=== PATIENT | male | born 1935 | race Caucasian/White ===

== ENCOUNTER 2018-02-13 18:22 | Emergency (ER) | payer OTHER, MEDICARE ==
--- NOTE | 2018-02-13 18:42 | PDOC ---
Rapid Medical Evaluation Time Seen by Provider: 02/13/18 18:38 Medical Evaluation: Allergies Allergy/AdvReac Type Severity Reaction Status Date / Time No Known Allergies Allergy Verified 11/06/11 17:42 02/13/18 18:38 82 year old male with HTN, HLD bitten by a raccoon 5:30p. Has laceration to right calf. -To FT for further evaluation
[2018-02-13 18:44] VITALS: BP 140/72; PULSE 89; TEMP 98.9; BMI 22.8
[2018-02-13] MEDS ORDERED: TETANUS AND DIPHTHERIA TOXOID 0.5 ML DISP.SYRIN IM ONE (19:14)
[2018-02-13] MEDS ORDERED: RABIES IMMUNE GLOBULIN 300 UNITS/2 ML VIAL IM ONE ×2 (19:17→19:45)
[2018-02-13] MEDS ORDERED: RABIES VACCINE (PCEC)/PF 2.5 UNIT/VIAL IM ONE (19:17)
--- NOTE | 2018-02-13 19:17 | PDOC ---
History of Present Illness - General Chief Complaint: Bite Stated Complaint: BITTEN BY RACCOON Time Seen by Provider: 02/13/18 18:38 - History of Present Illness Initial Comments: 82-year-old male presents for evaluation after being bit by a raccoon in his yard doing yard work. Past medical history significant for hypertension and dyslipidemia no ALLERGIES to medications. The bite is about the posterior lateral aspect of the right lower leg. 02/13/18 19:16 Past History - Past Medical History Allergies/Adverse Reactions: Allergies Allergy/AdvReac Type Severity Reaction Status Date / Time No Known Allergies Allergy Verified 02/13/18 18:42 Home Medications: Ambulatory Orders Lisinopril 10 mg PO ASDIR 02/13/18 Lovastatin 20 mg PO ASDIR 02/13/18 Triamterene/Hydrochlorothiazid [Triamterene-Hctz 37.5-25 mg Cp] 1 each PO ASDIR 02/13/18 COPD: No DVT: No HTN: Yes Hypercholesterolemia: Yes - Surgical History Cholecystectomy: Yes - Suicide/Smoking/Psychosocial Hx Smoking Status: No Smoking History: Never smoked Number of Cigarettes Smoked Daily: 0 Review of Systems - Review of Systems All Other Systems: Reviewed and Negative *Physical Exam - Vital Signs Last Vital Signs Temp Pulse Resp BP Pulse Ox 98.9 F 89 19 140/72 97 02/13/18 18:42 02/13/18 18:42 02/13/18 18:42 02/13/18 18:42 02/13/18 18:42 - Physical Exam Comments: There is a small superficial bite don on the posterior lateral aspect of the right lower leg with normal surrounding skin color and temperature of the edges are approximated no gross sensorimotor deficits. 02/13/18 19:17 Moderate Sedation - Procedure Monitoring Vital Signs: Vital Signs Temp Pulse Resp BP Pulse Ox 98.9 F 89 19 140/72 97 02/13/18 18:42 02/13/18 18:42 02/13/18 18:42 02/13/18 18:42 02/13/18 18:42 Medical Decision Making - Medical Decision Making Immunoglobulin was given around the wound and tolerated it well. This was done aseptically. 02/13/18 20:13 *DC/Admit/Observation/Transfer Diagnosis at time of Disposition: Rabies exposure - Discharge Dispostion Disposition: HOME Condition at time of disposition: Stable Decision to Admit order: No - Referrals Referrals: Uvaldo Welsh MD [Primary Care Provider] - - Patient Instructions Printed Discharge Instructions: Rabies Vaccine, DI for Animal Bites, DI for Rabies Vaccine Additional Instructions: Must return to the emergency department and receive a complete course of rabies vaccinations. Today is day 0. You return on day 3, 7, 14, and 28. The days are as follows: 02/16/18 02/20/18 02/27/18 03/13/18 - Post Discharge Activity
[2018-02-13] MEDS ORDERED: RABIES IMMUNE GLOBULIN 300 UNITS/2 ML VIAL ONE (19:44)
== END 2018-02-13 20:34 | disposition home or self-care (01) ==
LOC: JERFT 18:22
PROC: 3E0234Z Introduction of Serum, Toxoid and Vaccine into Muscle, Percutaneous Approach (ICD-10-PCS; principal; 2018-02-13)
PROC: 3E0234Z Introduction of Serum, Toxoid and Vaccine into Muscle, Percutaneous Approach (ICD-10-PCS; 2018-02-13)
PROC: 3E0234Z Introduction of Serum, Toxoid and Vaccine into Muscle, Percutaneous Approach (ICD-10-PCS; 2018-02-13)
DX: S80.871A Other superficial bite, right lower leg, initial encounter (principal); W55.51XA Bitten by raccoon, initial encounter; Y93.H2 Activity, gardening and landscaping; Y92.017 Garden or yard in single-family (private) house as the place of occurrence of the external cause; Y99.8 Other external cause status
CPT/HCPCS: 90375; 90471; 90675; 96372; 99281-25

== ENCOUNTER 2018-02-16 10:39 | Emergency (ER) | payer OTHER, MEDICARE ==
[2018-02-16 10:52] VITALS: BP 119/61; PULSE 57; TEMP 98.4; BMI 22.4
[2018-02-16] MEDS ORDERED: RABIES VACCINE (PCEC)/PF 2.5 UNIT/VIAL IM ONE (11:21)
--- NOTE | 2018-02-16 11:26 | PDOC ---
History of Present Illness - General Chief Complaint: Revisit,Rabies Injection Stated Complaint: RABIES INJECTION Time Seen by Provider: 02/16/18 11:11 History Source: Patient Exam Limitations: No Limitations - History of Present Illness Initial Comments: 02/16/18 11:26 Patient is an 82-year-old male who presents for his second rabies vaccination today. He was bit on his right lower leg on 02/13/18 by a raccoon in his backyard. He received his immunoglobulin and first shot on that date. Denies fevers, chills, increased redness to the site. Past History - Travel Traveled outside of the country in the last 30 days: No Close contact w/someone who was outside of country & ill: No - Past Medical History Allergies/Adverse Reactions: Allergies Allergy/AdvReac Type Severity Reaction Status Date / Time No Known Allergies Allergy Verified 02/16/18 10:48 Home Medications: Ambulatory Orders Lisinopril 10 mg PO ASDIR 02/13/18 Lovastatin 20 mg PO ASDIR 02/13/18 Triamterene/Hydrochlorothiazid [Triamterene-Hctz 37.5-25 mg Cp] 1 each PO ASDIR 02/13/18 COPD: No DVT: No HTN: Yes Hypercholesterolemia: Yes - Surgical History Cholecystectomy: Yes - Suicide/Smoking/Psychosocial Hx Smoking Status: No Smoking History: Never smoked Number of Cigarettes Smoked Daily: 0 Review of Systems - Review of Systems Able to Perform ROS?: Yes Comments:: 02/16/18 11:24 CONSTITUTIONAL: Absent: fever, chills, diaphoresis, generalized weakness, malaise, loss of appetite MUSCULOSKELETAL: Absent: myalgia, arthralgia, joint swelling SKIN: Absent: rash, itching, pallor HEMATOLOGIC/IMMUNOLOGIC: Absent: easy bleeding, easy bruising, lymphadenopathy, frequent infections ENDOCRINE: Absent: unexplained weight gain, unexplained weight loss, heat intolerance, cold intolerance NEUROLOGIC: Absent: headache, focal weakness or paresthesias, dizziness, unsteady gait, seizure, mental status changes, bladder or bowel incontinence Is the patient limited Telugu proficient: No *Physical Exam - Vital Signs Last Vital Signs Temp Pulse Resp BP Pulse Ox 98.4 F 57 L 19 119/61 97 02/16/18 10:48 02/16/18 10:48 02/16/18 10:48 02/16/18 10:48 02/16/18 10:48 - Physical Exam Comments: 02/16/18 11:25 GENERAL: [The patient is awake, alert, and fully oriented, in no acute distress. ] HEAD: [Normal with no signs of trauma.] EYES: [Pupils equal, round and reactive to light, extraocular movements intact, sclera anicteric, conjunctiva clear.] EXTREMITIES: [Scabbed area to the RLE posteriorly with no signs of cellulitis. Normal range of motion, no edema.] NEUROLOGICAL: [Normal speech, normal gait.] PSYCH: [Normal mood, normal affect.] SKIN: [Warm, Dry, normal turgor, no rashes or lesions noted.] Medical Decision Making - Medical Decision Making 02/16/18 11:26 Patient is a an 82-year-old male who was bit by a raccoon on 02/13/18. Patient received second rabies vaccination today. Rabies schedule again given. Leg looks unremarkable at this time. We'll discharge home. *DC/Admit/Observation/Transfer Diagnosis at time of Disposition: Rabies exposure - Discharge Dispostion Disposition: HOME Condition at time of disposition: Good Decision to Admit order: No - Referrals Referrals: Uvaldo Welsh MD [Primary Care Provider] - - Patient Instructions Printed Discharge Instructions: DI for Rabies Vaccine Additional Instructions: You were given your second rabies vaccination today. Please return for your continued series as directed below. Day 7 02/20/18 Date 14 02/27/18 Day 28, 03/13/18 Please follow up with your primary care doctor in regards to the last vaccination. Return to the emergency department sooner if you have any changes in your symptoms, or new symptoms. - Post Discharge Activity
== END 2018-02-16 11:34 | disposition home or self-care (01) ==
LOC: JERFT 10:39
PROC: 3E0234Z Introduction of Serum, Toxoid and Vaccine into Muscle, Percutaneous Approach (ICD-10-PCS; principal; 2018-02-16)
DX: Z20.3 Contact with and (suspected) exposure to rabies (principal); S81.851D Open bite, right lower leg, subsequent encounter; W55.51XD Bitten by raccoon, subsequent encounter
CPT/HCPCS: 90675; 99281-25

== ENCOUNTER 2018-02-20 08:49 | Emergency (ER) | payer OTHER, MEDICARE ==
[2018-02-20 08:54] VITALS: BP 127/58; PULSE 60; TEMP 97.6; BMI 23.5
[2018-02-20] MEDS ORDERED: RABIES IMMUNE GLOBULIN 300 UNITS/2 ML VIAL IM ONE (08:57)
--- NOTE | 2018-02-20 08:59 | PDOC ---
History of Present Illness - General Chief Complaint: Revisit,Rabies Injection Stated Complaint: REVISIT, RABIES INJECTION Time Seen by Provider: 02/20/18 08:55 History Source: Patient Exam Limitations: No Limitations - History of Present Illness Initial Comments: 02/20/18 09:10 Best Contact: PCP: Adnrea Pmhx: Hyperlipidemia, hypertension Pshx: Left inguinal hernia repair Allergies:NKDA FH: Social Hx: Cigarettes/ 0 Alcohol/ 0 Drugs/0 82-year-old male presents to the emergency department for his third rabies prophylaxis vaccination after getting it by a raccoon to the left posterior calf. Patient denies fever, chills, extremity pain/numbness or tingling sensation. Patient states while doing yard work, he was bit by a raccoon. Patient denies any reaction to his previous rabies vaccination on February 13 and . 02/20/18 09:18 Past History - Past Medical History Allergies/Adverse Reactions: Allergies Allergy/AdvReac Type Severity Reaction Status Date / Time No Known Allergies Allergy Verified 02/20/18 08:51 Home Medications: Ambulatory Orders Lisinopril 10 mg PO ASDIR 02/13/18 Lovastatin 20 mg PO ASDIR 02/13/18 Triamterene/Hydrochlorothiazid [Triamterene-Hctz 37.5-25 mg Cp] 1 each PO ASDIR 02/13/18 COPD: No DVT: No HTN: Yes Hypercholesterolemia: Yes - Surgical History Cholecystectomy: Yes - Immunization History Immunization Up to Date: Yes - Suicide/Smoking/Psychosocial Hx Smoking Status: No Smoking History: Never smoked Number of Cigarettes Smoked Daily: 0 Review of Systems - Review of Systems Able to Perform ROS?: Yes Comments:: 02/20/18 09:19 CONSTITUTIONAL: Absent: fever, chills, diaphoresis, generalized weakness, malaise, loss of appetite HEENT: Absent: rhinorrhea, nasal congestion, throat pain, throat swelling, difficulty swallowing, mouth swelling, ear pain, eye pain, visual Changes SKIN: Absent: rash, itching, pallor HEMATOLOGIC/IMMUNOLOGIC: Absent: easy bleeding, easy bruising, lymphadenopathy, frequent infections ENDOCRINE: Absent: unexplained weight gain, unexplained weight loss, heat intolerance, cold intolerance PE: GENERAL: Well developed, well nourished. Awake and alert. No acute distress. MUSCULOSKELETAL Normal range of motion at all joints. No bony deformities or tenderness. No CVA tenderness. EXTREMITIES: No cyanosis. No clubbing. No edema. No calf tenderness. SKIN: Warm and dry. Normal capillary refill. No rashes. No jaundice. left posterior calf healed mid scab neg erythema/lymphangitis Is the patient limited Kiswahili proficient: No *Physical Exam - Vital Signs Last Vital Signs Temp Pulse Resp BP Pulse Ox 97.6 F 60 18 127/58 99 02/20/18 08:51 02/20/18 08:51 02/20/18 08:51 02/20/18 08:51 02/20/18 08:51 *DC/Admit/Observation/Transfer Diagnosis at time of Disposition: Rabies exposure - Discharge Dispostion Disposition: HOME Condition at time of disposition: Stable Decision to Admit order: No - Referrals Referrals: Uvaldo Welsh MD [Primary Care Provider] - - Patient Instructions Printed Discharge Instructions: DI for Rabies Vaccine Additional Instructions: Return to the ER on February 27 for your final rabies vaccination. Return to the ER for any reaction to the rabies vaccination/fever or redness, pain to the injection site - Post Discharge Activity
[2018-02-20] MEDS ORDERED: RABIES VACCINE (PCEC)/PF 2.5 UNIT/VIAL IM ONE (09:09)
== END 2018-02-20 09:19 | disposition home or self-care (01) ==
LOC: JERFT 08:49
PROC: 3E0234Z Introduction of Serum, Toxoid and Vaccine into Muscle, Percutaneous Approach (ICD-10-PCS; principal; 2018-02-20)
DX: Z20.3 Contact with and (suspected) exposure to rabies (principal); W55.51XD Bitten by raccoon, subsequent encounter
CPT/HCPCS: 90471; 90675; 99281-25

== ENCOUNTER 2018-02-27 09:16 | Emergency (ER) | payer OTHER, MEDICARE ==
[2018-02-27 09:21] VITALS: BP 131/60; PULSE 60; TEMP 97.9; BMI 23.5
[2018-02-27] MEDS ORDERED: RABIES VACCINE (PCEC)/PF 2.5 UNIT/VIAL IM ONE (09:34)
--- NOTE | 2018-02-27 09:34 | PDOC ---
History of Present Illness - General Chief Complaint: Revisit,Rabies Injection Stated Complaint: REVISIT, RABIES INJECTION Time Seen by Provider: 02/27/18 09:34 History Source: Patient Exam Limitations: No Limitations - History of Present Illness Initial Comments: 02/27/18 09:35 pt here for fourth rabies vaccine. was bit by racoon, pt has no complaints. Past History - Past Medical History Allergies/Adverse Reactions: Allergies Allergy/AdvReac Type Severity Reaction Status Date / Time No Known Allergies Allergy Verified 02/27/18 09:19 Home Medications: Ambulatory Orders Lisinopril 10 mg PO ASDIR 02/13/18 Lovastatin 20 mg PO ASDIR 02/13/18 Triamterene/Hydrochlorothiazid [Triamterene-Hctz 37.5-25 mg Cp] 1 each PO ASDIR 02/13/18 COPD: No DVT: No HTN: Yes Hypercholesterolemia: Yes - Surgical History Cholecystectomy: Yes - Immunization History Immunization Up to Date: Yes - Suicide/Smoking/Psychosocial Hx Smoking Status: No Smoking History: Never smoked Number of Cigarettes Smoked Daily: 0 Review of Systems - Review of Systems Able to Perform ROS?: Yes Is the patient limited Tanzanian proficient: No *Physical Exam - Vital Signs Last Vital Signs Temp Pulse Resp BP Pulse Ox 97.9 F 60 19 131/60 98 02/27/18 09:19 02/27/18 09:19 02/27/18 09:19 02/27/18 09:19 02/27/18 09:19 - Physical Exam General Appearance: Yes: Nourished, Appropriately Dressed HEENT: positive: MAGGIE DEY Medical Decision Making - Medical Decision Making 02/27/18 09:35 rabies vaccine #4 *DC/Admit/Observation/Transfer Diagnosis at time of Disposition: Rabies exposure - Discharge Dispostion Disposition: HOME Condition at time of disposition: Good - Referrals Referrals: Uvaldo Welsh MD [Primary Care Provider] - - Patient Instructions Printed Discharge Instructions: DI for Rabies Vaccine - Post Discharge Activity
== END 2018-02-27 09:38 | disposition home or self-care (01) ==
LOC: JERFT 09:16
PROC: 3E0234Z Introduction of Serum, Toxoid and Vaccine into Muscle, Percutaneous Approach (ICD-10-PCS; principal; 2018-02-27)
DX: Z20.3 Contact with and (suspected) exposure to rabies (principal); W55.51XD Bitten by raccoon, subsequent encounter
CPT/HCPCS: 90471; 90675; 99281-25

== ENCOUNTER 2018-03-13 07:48 | Emergency (ER) | payer OTHER, MEDICARE ==
[2018-03-13 08:00] VITALS: BP 131/72; PULSE 55; TEMP 98.1; BMI 23.5
[2018-03-13] MEDS ORDERED: RABIES VACCINE (PCEC)/PF 2.5 UNIT/VIAL IM ONE (08:56)
--- NOTE | 2018-03-13 08:56 | PDOC ---
History of Present Illness - General Chief Complaint: Revisit,Rabies Injection Stated Complaint: Revisit,Rabies Injection History Source: Patient Exam Limitations: No Limitations - History of Present Illness Initial Comments: 03/13/18 08:57 Patient here for his last rabies vaccine. Patient is an 82-year-old male was bit by a raccoon back on February 13 and has received the series of rabies vaccine. Patient has no complaints presently. Patient was bit on his right calf. Timing/Duration: reports: other Location: reports: extremities Associated Symptoms: reports: denies symptoms Past History - Past Medical History Allergies/Adverse Reactions: Allergies Allergy/AdvReac Type Severity Reaction Status Date / Time No Known Allergies Allergy Verified 03/13/18 07:56 Home Medications: Ambulatory Orders Lisinopril 10 mg PO ASDIR 02/13/18 Lovastatin 20 mg PO ASDIR 02/13/18 Triamterene/Hydrochlorothiazid [Triamterene-Hctz 37.5-25 mg Cp] 1 each PO ASDIR 02/13/18 COPD: No DVT: No HTN: Yes Hypercholesterolemia: Yes - Surgical History Cholecystectomy: Yes - Immunization History Immunization Up to Date: Yes - Suicide/Smoking/Psychosocial Hx Smoking Status: No Smoking History: Never smoked Number of Cigarettes Smoked Daily: 0 Patient Lives Alone: No Lives with/in: spouse/SO Review of Systems - Review of Systems Able to Perform ROS?: No Constitutional: No: Symptoms Reported HEENTM: No: Symptoms Reported Respiratory: No: Symptoms reported Cardiac (ROS): No: Symptoms Reported ABD/GI: No: Symptoms Reported Integumentary: No: Symptoms Reported Neurological: No: Symptoms reported *Physical Exam - Vital Signs Last Vital Signs Temp Pulse Resp BP Pulse Ox 98.1 F 55 L 19 131/72 98 03/13/18 07:56 03/13/18 07:56 03/13/18 07:56 03/13/18 07:56 03/13/18 07:56 - Physical Exam General Appearance: Yes: Nourished, Appropriately Dressed. No: Apparent Distress HEENT: positive: EOMI, MAGGIE. negative: Pale Conjunctivae Neck: positive: Supple Respiratory/Chest: positive: Lungs Clear, Normal Breath Sounds. negative: Respiratory Distress, Accessory Muscle Use Cardiovascular: positive: Regular Rhythm, Bradycardia. negative: Murmur Gastrointestinal/Abdominal: positive: Soft. negative: Tenderness Integumentary: positive: Normal Color, Warm, Moist Neurologic: positive: Motor Strength 5/5 ( ambulatory) Medical Decision Making - Medical Decision Making 03/13/18 08:59 Patient bit by a raccoon on February 13 here for his last rabies vaccine. Patient ordered for RabAvert and was administered. Patient discharged home with post vaccination information. *DC/Admit/Observation/Transfer Diagnosis at time of Disposition: Rabies exposure - Discharge Dispostion Disposition: HOME Condition at time of disposition: Good - Referrals Referrals: Uvaldo Welsh MD [Primary Care Provider] - - Patient Instructions Printed Discharge Instructions: DI for Rabies Vaccine Additional Instructions: If you have any discomfort at your site you can take Motrin 400 mg and apply and ice pack for the next day. - Post Discharge Activity
--- NOTE | 2018-03-14 11:53 | PDOC ---
Patient Follow-up (Call Back) - Post ED Follow - Up Condition at time of discharge: Good Disposition at time of original discharge: HOME - Disposition Additional Instructions/Notes: called patient regarding re-read from radiology regarding ct a/p overnight radiology read was normal. per radiologist day following, pt with bilateral mild hydronephrosis, left greater than right. mild prostatic hypertrophy and bladder retention. called pt left voicemail to return call , will require outpatient urology followup. cirilli
== END 2018-03-13 09:11 | disposition home or self-care (01) ==
LOC: JERFT 07:48
PROC: 3E0234Z Introduction of Serum, Toxoid and Vaccine into Muscle, Percutaneous Approach (ICD-10-PCS; principal; 2018-03-13)
DX: Z20.3 Contact with and (suspected) exposure to rabies (principal); W55.51XD Bitten by raccoon, subsequent encounter
CPT/HCPCS: 90471; 90675; 99281-25

== ENCOUNTER 2019-04-20 09:29 | Emergency (ER) | payer OTHER, MEDICARE ==
[2019-04-20 09:35] VITALS: BP 152/62; PULSE 64; TEMP 97.6; BMI 21.1
--- NOTE | 2019-04-20 10:03 | PDOC ---
History of Present Illness - General Chief Complaint: Pain, Acute Stated Complaint: RT SIDE PAIN Time Seen by Provider: 04/20/19 09:41 History Source: Patient Exam Limitations: No Limitations Past History - Travel Traveled outside of the country in the last 30 days: No Close contact w/someone who was outside of country & ill: No - Past Medical History Allergies/Adverse Reactions: Allergies Allergy/AdvReac Type Severity Reaction Status Date / Time aspirin Allergy Verified 04/20/19 09:35 Home Medications: Ambulatory Orders Lisinopril 10 mg PO DAILY 02/13/18 Lovastatin 20 mg PO HS 02/13/18 Triamterene/Hydrochlorothiazid [Triamterene-Hctz 37.5-25 mg Cp] 1 each PO ASDIR 02/13/18 Cyclobenzaprine HCl 5 mg PO HS #7 tablet 04/20/19 Methylprednisolone [Medrol Dose Minesh] 4 mg PO ASDIR #21 tablet 04/20/19 COPD: No DVT: No HTN: Yes Hypercholesterolemia: Yes Kidney Stones: Yes - Surgical History Abdominal Surgery: (L INGUINAL HERNIA REPAIR) Cholecystectomy: Yes - Immunization History Immunization Up to Date: Yes - Suicide/Smoking/Psychosocial Hx Smoking Status: No Smoking History: Never smoked Number of Cigarettes Smoked Daily: 0 Hx Alcohol Use: No Drug/Substance Use Hx: No Review of Systems - Review of Systems Able to Perform ROS?: Yes Comments:: 04/20/19 10:43 CONSTITUTIONAL: Absent: fever, chills, diaphoresis, generalized weakness, malaise, loss of appetite HEENT: Absent: rhinorrhea, nasal congestion, throat pain, throat swelling, difficulty swallowing, mouth swelling, ear pain, eye pain, visual Changes GENITOURINARY: Absent: dysuria, frequency, urgency, hesitancy, hematuria, flank pain, genital pain MUSCULOSKELETAL: Present: R leg pain/hip pain Absent: arthralgia, joint swelling SKIN: Absent: rash, itching, pallor NEUROLOGIC: Absent: headache, focal weakness or paresthesias, dizziness, unsteady gait, seizure, mental status changes, bladder or bowel incontinence PSYCHIATRIC: Absent: anxiety, depression, suicidal or homicidal ideation, hallucinations. Is the patient limited Taiwanese proficient: No *Physical Exam - Vital Signs Last Vital Signs Temp Pulse Resp BP Pulse Ox 97.6 F 64 16 152/62 95 04/20/19 09:32 04/20/19 09:32 04/20/19 09:32 04/20/19 09:32 04/20/19 09:32 - Physical Exam Comments: 04/20/19 10:44 GENERAL: Well developed, well nourished. Awake and alert. No acute distress. NECK: Supple. Full ROM. No JVD. Carotid pulses 2+ and symmetric, without bruits. No thyromegaly. No lymphadenopathy. MUSCULOSKELETAL Normal range of motion at all joints. TTP of the R lateral gluteus muscles. Strength 5/5 in the LE b/l. No bony deformities or tenderness. No CVA tenderness. EXTREMITIES: No cyanosis. No clubbing. No edema. No calf tenderness. SKIN: Warm and dry. Normal capillary refill. No rashes. No jaundice. NEUROLOGICAL: Alert, awake, appropriate. Cranial nerves 2-12 intact. No deficits to light touch and temperature in face, upper extremities and lower extremities. No motor deficits in the in face, upper extremities and lower extremities. Normoreflexic in the upper and lower extremities. Normal speech. Toes are down- going bilaterally. Gait is normal without ataxia. PSYCHIATRIC: Cooperative. Good eye contact. Appropriate mood and affect. Medical Decision Making - Medical Decision Making 04/20/19 10:49 the patient is an 83-year-old male with past medical history of hypertension, hyperlipidemia, who presents to the ER today for right hip pain and right leg pain for 2 days. The patient states that he initially woke up with pain 2 days ago. He denies falling or trauma. He states that the pain starts in his right hip and travels down his leg. He states that the pain is "stronger ". He tried taking Tylenol at home with little relief of his symptoms. Denies numbness and tingling, weakness to the affected extremity, saddle anesthesia and bladder bowel incontinence. A/P: Sciatica On exam patient tender to the right lateral gluteal muscles. Positive straight leg raise test. No tenderness to palpation of the lumbar paraspinous muscles bilaterally. No trauma, fever, or CVA tenderness on exam X-rays of the hip and low back obtained given age and symptoms to rule out arthritis. Decadron, lidocaine and Tylenol given for pain Reevaluate 04/20/19 11:52 Pain has improved after the medication with sitting. Still with pain with walking Suspect sciatica X-rays noted to have vascular calcifications No arthritis of the hip noted, some arthritis/decreased disc height of the lumbar spine without evidence of acute fracture Will have pt f/u with his PCP on Tuesday DC home with pain control I discussed the physical exam findings, ancillary test results and final diagnoses with the patient. I answered all of the patient's questions. The patient was satisfied with the care received and felt comfortable with the discharge plan and treatment plan. The Patient agrees to follow up with the primary care physician/specialist within 24-72 hours. Return precautions were given. *DC/Admit/Observation/Transfer Diagnosis at time of Disposition: Sciatica Qualifiers: Laterality: right Qualified Code(s): M54.31 - Sciatica, right side - Discharge Dispostion Disposition: HOME Condition at time of disposition: Stable Decision to Admit order: No - Referrals Referrals: Janette Palacios MD [Primary Care Provider] - - Patient Instructions Printed Discharge Instructions: DI for Sciatica Additional Instructions: you most likely have sciatica causing your leg pain. Please take the Medrol Dosepak as prescribed starting tomorrow. He received her first dose of steroids today. He may take Flexeril 5 mg before bed. To not drink alcohol or drive after taking this medication as it may make you sleepy. You may take Tylenol extra strength (500mg) 1 tab every 4 hours as needed for pain. Use the heating pad to the area to help relax the muscles. Please follow-up with your primary care doctor on Tuesday. You were given a copy of your x-rays There were no broken bones noted. return to the ER for worsening back pain, numbness and tingling down the extremity, numbness or tingling in the groin, loss of bladder or bowel function , or if you have any changes in your symptoms. - Post Discharge Activity
[2019-04-20] MEDS ORDERED: DEXAMETHASONE SOD PHOSPHATE 10 MG/1 ML VIAL IM ONE (10:14)
[2019-04-20] MEDS ORDERED: ACETAMINOPHEN 325 MG TABLET (FP) PO ONE (10:14)
[2019-04-20] MEDS ORDERED: LIDOCAINE 5% TOPICAL PATCH TP ONE (10:15)
[2019-04-20] MEDS ORDERED: ACETAMINOPHEN 325 MG TABLET (FP) ONE (10:18)
[2019-04-20] MEDS ORDERED: DEXAMETHASONE SOD PHOSPHATE 10 MG/1 ML VIAL ONE (10:18)
[2019-04-20] MEDS ORDERED: LIDOCAINE 5% TOPICAL PATCH ONE (10:18)
[2019-04-20] MEDS ORDERED: LIDOCAINE PATCH REMOVAL MC SCH (22:00)
== END 2019-04-20 12:04 | disposition home or self-care (01) ==
LOC: JERFT 09:29
PROC: 3E023GC Introduction of Other Therapeutic Substance into Muscle, Percutaneous Approach (ICD-10-PCS; principal; 2019-04-20)
DX: M54.31 Sciatica, right side (principal); I10 Essential (primary) hypertension; E78.5 Hyperlipidemia, unspecified
CPT/HCPCS: 72100-TC-FY; 73523-TC-FY; 96372; 99282-25; J1100